=== PATIENT | male | born 1980 | race Hispanic/Latino ===

== ENCOUNTER 2025-02-27 02:43 | Emergency (ER) | payer OTHER ==
[~2025-02-27] VITALS: Ht 180.3 cm; Wt 144.2 kg
[2025-02-27 02:45] VITALS: PULSE 74; RESP 18; TEMP 97.8
[2025-02-27] MEDS: SODIUM CHLORIDE 0.9% 1000ML 1,000 ML IV STA (02:57)
[2025-02-27 02:58] LABS: BASOPHILS % 0.3 % (0.0-1.0); EOSINOPHILS % 2.6 % (0.0-6.0); LYMPHOCYTES % 12.3 % (18.0-39.1); MONOCYTES % 6.5 % (4.4-11.3); NEUTROPHILS % 78.0 % (38.7-80.0); RED CELL DISTRIBUTION WIDTH 14.4 % (11.7-14.4)
[2025-02-27 03:01] LABS: LEUKOCYTE ESTERASE ,URINE MODERATE (NEGATIVE); PROTEIN,URINE DIPSTICK 2+ (NEGATIVE); URINE UROBILINOGEN 0.2 mg/dL (0.2 - 1)
[2025-02-27 03:21] LABS: EST GLOMERULAR FILTRATION RATE 59.0 ML/MIN (>=60)
[2025-02-27 03:22] LABS: EPITHELIAL CELLS,URINE FEW /LPF; WBC,URINE (MAN) >50 /HPF (0-5)
[2025-02-27] MEDS ORDERED: IOPAMIDOL 370 MG/ML 100 ML INFUS..BTL INJ ONE (03:38)
[2025-02-27] MEDS ORDERED: AUGMENTIN 500-1 EACH PO (04:26)
[2025-02-27 04:34] VITALS: BP 122/77; PULSE 68; RESP 16; O2SAT 97
== END 2025-02-27 04:53 | disposition home or self-care (01) ==
LOC: ER 02:49
DX: N30.91 Cystitis, unspecified with hematuria (principal); R10.13 Epigastric pain; E87.1 Hypo-osmolality and hyponatremia; I12.9 Hypertensive chronic kidney disease with stage 1 through stage 4 chronic kidney disease, or unspecified chronic kidney disease; E11.22 Type 2 diabetes mellitus with diabetic chronic kidney disease; N18.9 Chronic kidney disease, unspecified; K76.0 Fatty (change of) liver, not elsewhere classified; E78.5 Hyperlipidemia, unspecified; M54.9 Dorsalgia, unspecified; G89.29 Other chronic pain; F41.9 Anxiety disorder, unspecified; F32.A Depression, unspecified; Z85.53 Personal history of malignant neoplasm of renal pelvis; Z85.118 Personal history of other malignant neoplasm of bronchus and lung; E66.01 Morbid (severe) obesity due to excess calories
CPT/HCPCS: 36415; 74177; 80053; 81001; 83690; 85025; 99284; J7030; Q9967